=== PATIENT | female | born 1960 | race Caucasian/White ===

== ENCOUNTER 2018-02-09 07:48 | Day surgery (SDC) | payer OTHER ==
[2018-02-09] MEDS ORDERED: PROPOFOL 20 ML (09:27)
[2018-02-09] MEDS ORDERED: FENTAnyl 50 MCG/ML VIAL (09:27)
[2018-02-09] MEDS ORDERED: MIDAZOLAM 1 MG/ML 2 ML INJ (09:27)
[2018-02-09] MEDS ORDERED: LIDOCAINE 2% (SDV) 5 ML INJ (09:29)
== END 2018-02-09 15:01 | disposition home or self-care (01) ==
LOC: GIL 07:48
DX: K29.70 Gastritis, unspecified, without bleeding (principal); K64.8 Other hemorrhoids; K64.4 Residual hemorrhoidal skin tags; Q43.8 Other specified congenital malformations of intestine
CPT/HCPCS: 43239; 88305

== ENCOUNTER 2018-02-09 17:15 | Inpatient (IN) | payer OTHER ==
[2018-02-09] MEDS: ONDANSETRON 4 MG INJ IV (17:46)
[2018-02-09] MEDS: morphine 4 MG/ML VIAL IV (17:47)
[2018-02-09] MEDS: SOD CHLORIDE 0.9% 1,000 ML IV (17:48)
[2018-02-09 18:21] LABS: ADD MAN DIFF? NO
[2018-02-09 18:28] LABS: WHITE BLOOD COUNT 6.8 10^3/ul (4.8-10.8)
[2018-02-09 18:28] LABS: BASOPHILS % 0.1 % (0.0-2.0); EOSINOPHILS % 0.1 % (0.0-7.0); HEMATOCRIT 38.2 % (37.0-47.0); HEMOGLOBIN 13.1 g/dl (12.0-16.0); MEAN CORPUSCULAR HEMOGLOBIN 29.5 pg (29.0-33.0); MEAN CORPUSCULAR HGB CONC 34.3 g/dl (32.0-37.0); MEAN PLATELET VOLUME 11.5 fl (7.4-10.4); MONOCYTE # 0.6 10^3/ul (0.3-0.9); MONOCYTES % 9.4 % (0.0-11.0); NEUTROPHIL # 5.2 10^3/ul (1.6-7.5); NEUTROPHILS % 76.1 % (39.0-77.0); PLATELET COUNT 212 10^3/UL (140-415); RED BLOOD COUNT 4.44 10^6/ul (4.20-5.40); RED CELL DISTRIBUTION WIDTH 12.9 % (11.5-14.5)
[2018-02-09 18:30] LABS: ADD UMIC NO; UR ASCORBIC ACID NEGATIVE (NEGATIVE); UR BILIRUBIN (Dip) NEGATIVE (NEGATIVE); UR BLOOD (Dip) NEGATIVE (NEGATIVE); UR CLARITY CLEAR (CLEAR); UR COLOR STRAW (YELLOW); UR GLUCOSE (Dip) NEGATIVE (NEGATIVE); UR KETONES (Dip) NEGATIVE (NEGATIVE); UR LEUKOCYTE ESTERASE (Dip) NEGATIVE Leu/ul (NEGATIVE); UR NITRITE (Dip) NEGATIVE (NEGATIVE); UR SPECIFIC GRAVITY (Dip) 1.003 (1.003-1.030); UR TOTAL PROTEIN (Dip) NEGATIVE (NEGATIVE); UR UROBILINOGEN (Dip) NEGATIVE (NEGATIVE)
[2018-02-09 18:44] LABS: ALANINE AMINOTRANSFERASE 249 IU/L (13-69); ALBUMIN 4.3 g/dl (3.3-4.9); ALBUMIN/GLOBULIN RATIO 1.53; ALKALINE PHOSPHATASE 183 IU/L (42-121); ANION GAP 16 (8-16); ASPARTATE AMINO TRANSFERASE 355 IU/L (15-46); BILIRUBIN,INDIRECT 0.6 mg/dl (0-1.1); BILIRUBIN,TOTAL 0.6 mg/dl (0.2-1.3); BLOOD UREA NITROGEN 6 mg/dl (7-20); CALCIUM 9.9 mg/dl (8.4-10.2); CARBON DIOXIDE 25 mmol/L (21-31); CHLORIDE 108 mmol/L (97-110); CREATININE 0.82 mg/dl (0.44-1.00); GLUCOSE 98 mg/dl (70-220); LIPASE 42 U/L (23-300); POTASSIUM 3.8 mmol/L (3.5-5.1); SODIUM 145 mmol/L (135-144); TOTAL PROTEIN 7.1 g/dl (6.1-8.1)
[2018-02-09 18:46] LABS: AMYLASE 43 U/L (11-123)
[2018-02-09] MEDS ORDERED: ACETAMINOPHEN 325 MG TAB PO ×2 (19:30→23:00)
[2018-02-09 19:34] LABS: INR 0.92; PARTIAL THROMBOPLASTIN TIME 26.4 Sec (25.0-35.0); PROTIME 12.4 Sec (11.9-14.9)
[2018-02-09] MEDS: HYDROmorphONE 0.5 MG/0.5 ML SYG IV ×2 (20:03→23:10)
[2018-02-09] MEDS: HYDROmorphONE 1 MG/5 ML IV SYRINGE IV (20:07)
[2018-02-09] MEDS: NICOTINE (21 MG/24 HR) PATCH TRANSDERM (22:58)
[2018-02-10 00:05] LABS: HAAIG REFLEX REFLEX FILED
[2018-02-10] MEDS: QUETIAPINE 100 MG TAB PO ×2 (00:10→22:57)
[2018-02-10 00:57] LABS: HEPATITIS B SURFACE ANTIGEN NEGATIVE (NEGATIVE)
[2018-02-10 01:15] LABS: HEPATITIS B CORE ANTIBODY NEGATIVE (NEGATIVE); HEPATITIS C VIRAL ANTIBODY REACTIVE (NEGATIVE)
[2018-02-10 01:27] LABS: ALPHA FETOPROTEIN 1.83 IU/L (0.00-7.21)
[2018-02-10] MEDS ORDERED: VITAMIN A & D 5 GM OINT PACKET TOP (01:55)
[2018-02-10] MEDS: CYCLOBENZAPRINE 10 MG TAB PO ×3 (05:07→22:57)
[2018-02-10] MEDS: PANTOPRAZOLE (EC) 40 MG TAB PO (05:08)
[2018-02-10] MEDS: HYDROmorphONE 0.5 MG/0.5 ML SYG IV ×4 (05:36→20:26)
[2018-02-10 05:46] LABS: ADD MAN DIFF? NO
[2018-02-10 05:54] LABS: EOSINOPHILS % 0.3 % (0.0-7.0); HEMATOCRIT 31.8 % (37.0-47.0); HEMOGLOBIN 10.8 g/dl (12.0-16.0); LYMPHOCYTES % 24.3 % (15.0-51.0); MEAN CORPUSCULAR HEMOGLOBIN 29.8 pg (29.0-33.0); MEAN CORPUSCULAR VOLUME 87.6 fl (82.0-101.0); MEAN PLATELET VOLUME 11.2 fl (7.4-10.4); MONOCYTE # 0.4 10^3/ul (0.3-0.9); MONOCYTES % 10.3 % (0.0-11.0); NEUTROPHIL # 2.6 10^3/ul (1.6-7.5); NEUTROPHILS % 64.8 % (39.0-77.0); PLATELET COUNT 173 10^3/UL (140-415); RED BLOOD COUNT 3.63 10^6/ul (4.20-5.40); RED CELL DISTRIBUTION WIDTH 12.7 % (11.5-14.5)
[2018-02-10 06:00] LABS: ALANINE AMINOTRANSFERASE 256 IU/L (13-69); ALBUMIN 3.3 g/dl (3.3-4.9); ALBUMIN/GLOBULIN RATIO 1.37; ALKALINE PHOSPHATASE 190 IU/L (42-121); ANION GAP 10 (8-16); ASPARTATE AMINO TRANSFERASE 267 IU/L (15-46); BILIRUBIN,INDIRECT 0.7 mg/dl (0-1.1); BILIRUBIN,TOTAL 0.7 mg/dl (0.2-1.3); BLOOD UREA NITROGEN 8 mg/dl (7-20); CALCIUM 8.7 mg/dl (8.4-10.2); CARBON DIOXIDE 27 mmol/L (21-31); CHLORIDE 109 mmol/L (97-110); CREATININE 0.87 mg/dl (0.44-1.00); GLUCOSE 95 mg/dl (70-220); POTASSIUM 3.4 mmol/L (3.5-5.1); SODIUM 143 mmol/L (135-144); TOTAL PROTEIN 5.7 g/dl (6.1-8.1)
[2018-02-10] MEDS: DICYCLOMINE 10 MG CAP PO ×2 (09:16→20:26)
[2018-02-10] MEDS: NICOTINE (21 MG/24 HR) PATCH TRANSDERM (09:17)
[2018-02-10] MEDS: LORATADINE 10 MG TAB PO (09:17)
[2018-02-10] MEDS: PROPRANOLOL 20 MG TAB PO ×2 (09:17→20:27)
[2018-02-10] MEDS: ONDANSETRON 4 MG INJ IV (09:17)
[2018-02-10] MEDS: LURASIDONE IS XX ×2 (13:30→21:30)
[2018-02-10] MEDS: LORAZEPAM 1 MG TAB PO (13:45)
[2018-02-10 14:15] LABS: HEMATOCRIT 33.6 % (37.0-47.0)
[2018-02-10] MEDS: DEXTROSE 5%-0.45% NACL 1,000 ML IV (15:28)
[2018-02-10] MEDS: POTASSIUM CHLORIDE 100 ML IVPB (16:43)
[2018-02-10] MEDS: ATORVASTATIN 10 MG TAB PO (20:27)
[2018-02-11] MEDS: HYDROmorphONE 0.5 MG/0.5 ML SYG IV ×6 (00:01→21:23)
[2018-02-11 01:17] LABS: TROPONIN-I < 0.010 ng/ml (0.000-0.120)
[2018-02-11] MEDS: LURASIDONE IS XX ×3 (05:30→21:30)
[2018-02-11] MEDS: PANTOPRAZOLE (EC) 40 MG TAB PO (05:40)
[2018-02-11] MEDS: CYCLOBENZAPRINE 10 MG TAB PO ×3 (05:40→21:22)
[2018-02-11 06:05] LABS: ADD MAN DIFF? NO
[2018-02-11 06:06] LABS: WHITE BLOOD COUNT 4.6 10^3/ul (4.8-10.8)
[2018-02-11 06:06] LABS: BASOPHILS % 0.2 % (0.0-2.0); EOSINOPHILS % 0.2 % (0.0-7.0); HEMATOCRIT 32.8 % (37.0-47.0); HEMOGLOBIN 11.1 g/dl (12.0-16.0); LYMPHOCYTES # 1.3 10^3/ul (0.8-2.9); LYMPHOCYTES % 28.3 % (15.0-51.0); MEAN CORPUSCULAR HEMOGLOBIN 29.7 pg (29.0-33.0); MEAN CORPUSCULAR HGB CONC 33.8 g/dl (32.0-37.0); MEAN CORPUSCULAR VOLUME 87.7 fl (82.0-101.0); MEAN PLATELET VOLUME 11.1 fl (7.4-10.4); MONOCYTE # 0.5 10^3/ul (0.3-0.9); MONOCYTES % 10.7 % (0.0-11.0); NEUTROPHIL # 2.8 10^3/ul (1.6-7.5); NEUTROPHILS % 60.4 % (39.0-77.0); PLATELET COUNT 176 10^3/UL (140-415); RED BLOOD COUNT 3.74 10^6/ul (4.20-5.40)
[2018-02-11 06:23] LABS: HEMOGLOBIN A1C 5.8 % (0-5.9)
[2018-02-11 06:29] LABS: INR 0.94; PROTIME 12.7 Sec (11.9-14.9)
[2018-02-11 06:30] LABS: PARTIAL THROMBOPLASTIN TIME 27.9 Sec (25.0-35.0)
[2018-02-11 06:35] LABS: ANION GAP 12 (8-16); BLOOD UREA NITROGEN 11 mg/dl (7-20); CALCIUM 8.9 mg/dl (8.4-10.2); CARBON DIOXIDE 26 mmol/L (21-31); CHLORIDE 111 mmol/L (97-110); CREATININE 0.78 mg/dl (0.44-1.00); GLUCOSE 101 mg/dl (70-220); POTASSIUM 3.9 mmol/L (3.5-5.1); SODIUM 145 mmol/L (135-144)
[2018-02-11 06:53] LABS: TROPONIN-I < 0.010 ng/ml (0.000-0.120)
[2018-02-11 06:58] LABS: ALANINE AMINOTRANSFERASE 237 IU/L (13-69); ALBUMIN 3.5 g/dl (3.3-4.9); ALKALINE PHOSPHATASE 191 IU/L (42-121); ASPARTATE AMINO TRANSFERASE 158 IU/L (15-46); BILIRUBIN,INDIRECT 0.2 mg/dl (0-1.1); BILIRUBIN,TOTAL 0.2 mg/dl (0.2-1.3)
[2018-02-11] MEDS: DEXTROSE 5%-0.45% NACL 1,000 ML IV ×2 (07:40→11:07)
[2018-02-11] MEDS: PROPRANOLOL 20 MG TAB PO ×2 (09:00→21:00)
[2018-02-11] MEDS: DICYCLOMINE 10 MG CAP PO ×2 (10:21→21:17)
[2018-02-11] MEDS: LORATADINE 10 MG TAB PO (10:21)
[2018-02-11] MEDS: NICOTINE (21 MG/24 HR) PATCH TRANSDERM (10:23)
[2018-02-11] MEDS: LORAZEPAM 1 MG TAB PO ×2 (12:09→23:12)
[2018-02-11] MEDS ORDERED: CEPASTAT LOZENGE MT (16:30)
[2018-02-11] MEDS: QUETIAPINE 100 MG TAB PO ×2 (21:00→23:12)
[2018-02-11] MEDS: ATORVASTATIN 10 MG TAB PO (21:17)
[2018-02-11] MEDS: ONDANSETRON 4 MG INJ IV (21:22)
[2018-02-12] MEDS: DEXTROSE 5%-0.45% NACL 1,000 ML IV ×4 (00:20→22:30)
[2018-02-12] MEDS: HYDROmorphONE 0.5 MG/0.5 ML SYG IV ×5 (03:53→22:25)
[2018-02-12] MEDS: LURASIDONE IS XX ×3 (05:30→21:30)
[2018-02-12] MEDS: PANTOPRAZOLE (EC) 40 MG TAB PO (05:52)
[2018-02-12] MEDS: CYCLOBENZAPRINE 10 MG TAB PO ×3 (05:52→22:22)
[2018-02-12 07:15] LABS: ADD MAN DIFF? NO
[2018-02-12 07:17] LABS: BASOPHILS % 0.4 % (0.0-2.0); EOSINOPHILS % 0.4 % (0.0-7.0); HEMATOCRIT 31.5 % (37.0-47.0); HEMOGLOBIN 10.7 g/dl (12.0-16.0); LYMPHOCYTES % 19.9 % (15.0-51.0); MEAN CORPUSCULAR HEMOGLOBIN 29.6 pg (29.0-33.0); MEAN PLATELET VOLUME 11.2 fl (7.4-10.4); MONOCYTE # 0.5 10^3/ul (0.3-0.9); MONOCYTES % 9.4 % (0.0-11.0); NEUTROPHIL # 3.7 10^3/ul (1.6-7.5); NEUTROPHILS % 69.7 % (39.0-77.0); PLATELET COUNT 173 10^3/UL (140-415); RED BLOOD COUNT 3.62 10^6/ul (4.20-5.40); RED CELL DISTRIBUTION WIDTH 12.8 % (11.5-14.5)
[2018-02-12 07:17] LABS: WHITE BLOOD COUNT 5.2 10^3/ul (4.8-10.8)
[2018-02-12 07:52] LABS: ANION GAP 8 (8-16); BLOOD UREA NITROGEN 9 mg/dl (7-20); CARBON DIOXIDE 30 mmol/L (21-31); CHLORIDE 106 mmol/L (97-110); CREATININE 0.88 mg/dl (0.44-1.00); GLUCOSE 109 mg/dl (70-220); POTASSIUM 3.7 mmol/L (3.5-5.1); SODIUM 140 mmol/L (135-144)
[2018-02-12] MEDS: LORATADINE 10 MG TAB PO (08:32)
[2018-02-12] MEDS: NICOTINE (21 MG/24 HR) PATCH TRANSDERM (08:33)
[2018-02-12] MEDS: traMADol 50 MG TAB PO (08:33)
[2018-02-12] MEDS: PROPRANOLOL 20 MG TAB PO ×2 (08:34→22:23)
[2018-02-12] MEDS: DICYCLOMINE 10 MG CAP PO ×2 (08:37→22:22)
[2018-02-12] MEDS: HYDROCODONE/APAP (5/325) TAB PO (11:13)
[2018-02-12] MEDS: LORAZEPAM 1 MG TAB PO (14:42)
[2018-02-12] MEDS: QUETIAPINE 100 MG TAB PO (21:00)
[2018-02-12] MEDS: ATORVASTATIN 10 MG TAB PO (22:22)
[2018-02-13] MEDS: QUETIAPINE 100 MG TAB PO ×2 (00:19→21:43)
[2018-02-13] MEDS: LORAZEPAM 1 MG TAB PO ×3 (00:19→21:43)
[2018-02-13] MEDS: HYDROmorphONE 0.5 MG/0.5 ML SYG IV ×6 (03:09→23:27)
[2018-02-13] MEDS: CYCLOBENZAPRINE 10 MG TAB PO ×3 (05:20→22:59)
[2018-02-13] MEDS: PANTOPRAZOLE (EC) 40 MG TAB PO (05:20)
[2018-02-13] MEDS: LURASIDONE IS XX ×3 (05:30→21:30)
[2018-02-13 05:58] LABS: ADD MAN DIFF? NO
[2018-02-13 06:02] LABS: WHITE BLOOD COUNT 4.8 10^3/ul (4.8-10.8)
[2018-02-13 06:02] LABS: BASOPHILS % 0.2 % (0.0-2.0); EOSINOPHILS % 0.4 % (0.0-7.0); HEMATOCRIT 32.8 % (37.0-47.0); HEMOGLOBIN 11.1 g/dl (12.0-16.0); LYMPHOCYTES % 21.6 % (15.0-51.0); MEAN CORPUSCULAR HEMOGLOBIN 29.6 pg (29.0-33.0); MEAN CORPUSCULAR HGB CONC 33.8 g/dl (32.0-37.0); MEAN CORPUSCULAR VOLUME 87.5 fl (82.0-101.0); MEAN PLATELET VOLUME 10.9 fl (7.4-10.4); MONOCYTE # 0.5 10^3/ul (0.3-0.9); MONOCYTES % 10.3 % (0.0-11.0); NEUTROPHIL # 3.2 10^3/ul (1.6-7.5); NEUTROPHILS % 67.3 % (39.0-77.0); PLATELET COUNT 175 10^3/UL (140-415); RED BLOOD COUNT 3.75 10^6/ul (4.20-5.40); RED CELL DISTRIBUTION WIDTH 12.8 % (11.5-14.5)
[2018-02-13] MEDS: DEXTROSE 5%-0.45% NACL 1,000 ML IV ×2 (09:37→16:40)
[2018-02-13] MEDS: LORATADINE 10 MG TAB PO (09:38)
[2018-02-13] MEDS: NICOTINE (21 MG/24 HR) PATCH TRANSDERM (09:38)
[2018-02-13] MEDS: DICYCLOMINE 10 MG CAP PO ×2 (09:38→20:18)
[2018-02-13] MEDS: PROPRANOLOL 20 MG TAB PO ×2 (09:39→20:19)
[2018-02-13] MEDS ORDERED: IOHEXOL 14.3 MG(I)/ML (ADULT) BTL PO (12:00)
[2018-02-13] MEDS: SOD CHLORIDE 0.9% 100 ML (12:47)
[2018-02-13] MEDS: IOHEXOL 300MG/ML 150 ML BTL (12:47)
[2018-02-13] MEDS: ATORVASTATIN 10 MG TAB PO (20:19)
[2018-02-14] MEDS: HYDROmorphONE 0.5 MG/0.5 ML SYG IV ×4 (02:29→13:32)
[2018-02-14] MEDS: LURASIDONE IS XX (05:30)
[2018-02-14] MEDS: PANTOPRAZOLE (EC) 40 MG TAB PO (05:54)
[2018-02-14] MEDS: CYCLOBENZAPRINE 10 MG TAB PO ×4 (05:54→14:00)
[2018-02-14] MEDS: DEXTROSE 5%-0.45% NACL 1,000 ML IV (07:18)
[2018-02-14] MEDS: LORATADINE 10 MG TAB PO (09:24)
[2018-02-14] MEDS: NICOTINE (21 MG/24 HR) PATCH TRANSDERM (09:25)
[2018-02-14] MEDS: DICYCLOMINE 10 MG CAP PO (09:25)
[2018-02-14] MEDS: PROPRANOLOL 20 MG TAB PO (09:25)
[2018-02-14 10:55] LABS: ADD MAN DIFF? NO
[2018-02-14 10:57] LABS: BASOPHILS % 0.2 % (0.0-2.0); EOSINOPHILS % 0.2 % (0.0-7.0); HEMATOCRIT 35.4 % (37.0-47.0); HEMOGLOBIN 11.9 g/dl (12.0-16.0); LYMPHOCYTES % 21.3 % (15.0-51.0); MEAN CORPUSCULAR HEMOGLOBIN 29.5 pg (29.0-33.0); MEAN CORPUSCULAR HGB CONC 33.6 g/dl (32.0-37.0); MEAN CORPUSCULAR VOLUME 87.8 fl (82.0-101.0); MEAN PLATELET VOLUME 10.7 fl (7.4-10.4); MONOCYTE # 0.7 10^3/ul (0.3-0.9); MONOCYTES % 16.1 % (0.0-11.0); NEUTROPHIL # 2.9 10^3/ul (1.6-7.5); PLATELET COUNT 189 10^3/UL (140-415); RED BLOOD COUNT 4.03 10^6/ul (4.20-5.40); RED CELL DISTRIBUTION WIDTH 12.9 % (11.5-14.5)
[2018-02-14 10:57] LABS: WHITE BLOOD COUNT 4.6 10^3/ul (4.8-10.8)
[2018-02-14 11:15] LABS: ANION GAP 7 (8-16); BLOOD UREA NITROGEN 10 mg/dl (7-20); CALCIUM 9.4 mg/dl (8.4-10.2); CARBON DIOXIDE 32 mmol/L (21-31); CHLORIDE 104 mmol/L (97-110); CREATININE 0.76 mg/dl (0.44-1.00); GLUCOSE 109 mg/dl (70-220); POTASSIUM 3.9 mmol/L (3.5-5.1); SODIUM 139 mmol/L (135-144)
[2018-02-14] MEDS: LORAZEPAM 1 MG TAB PO (14:44)
== END 2018-02-14 18:25 | disposition home or self-care (01) | DRG 921 ==
LOC: E/R 17:15 → MS2 19:29
DX: D78.32 Postprocedural hematoma of the spleen following other procedure (principal); Z90.49 Acquired absence of other specified parts of digestive tract; F41.9 Anxiety disorder, unspecified; F17.210 Nicotine dependence, cigarettes, uncomplicated; K70.9 Alcoholic liver disease, unspecified; K80.50 Calculus of bile duct without cholangitis or cholecystitis without obstruction; Y83.8 Other surgical procedures as the cause of abnormal reaction of the patient, or of later complication, without mention of misadventure at the time of the procedure; I10 Essential (primary) hypertension; R07.81 Pleurodynia; M54.2 Cervicalgia; M25.512 Pain in left shoulder; F10.10 Alcohol abuse, uncomplicated
CPT/HCPCS: 36415; 70360; 71045; 73030; 74160; 74176; 74181; 80048; 80053; 80076; 81003; 82105; 82150; 83036; 83690; 84484; 85014; 85025; 85610; 85730; 86704; 86709; 86803; 86850; 86900; 86901; 87340; 93005; 96374; 96375; 99291-25

== ENCOUNTER 2018-04-15 18:53 | Emergency (ER) | payer OTHER ==
[2018-04-15] MEDS: CHLORDIAZEPOXIDE 25 MG CAP PO (19:37)
[2018-04-15] MEDS: ONDANSETRON (ODT) 4 MG TAB ODT (19:58)
== END 2018-04-15 20:55 | disposition home or self-care (01) ==
LOC: E/R 18:53
DX: F10.129 Alcohol abuse with intoxication, unspecified (principal); R40.2252 Coma scale, best verbal response, oriented, at arrival to emergency department; F17.210 Nicotine dependence, cigarettes, uncomplicated; I10 Essential (primary) hypertension; R40.2142 Coma scale, eyes open, spontaneous, at arrival to emergency department; R40.2362 Coma scale, best motor response, obeys commands, at arrival to emergency department
CPT/HCPCS: 99283; Z7502

== ENCOUNTER 2018-04-15 23:55 | Emergency (ER) | payer SELFPAY, OTHER | END 2018-04-16 01:56 | disposition left against medical advice (07) | LOC: E/R 23:55 | DX: Z53.21 Procedure and treatment not carried out due to patient leaving prior to being seen by health care provider (principal) ==

== ENCOUNTER 2018-04-17 05:09 | Emergency (ER) | payer SELFPAY | END 2018-04-17 07:58 | disposition left against medical advice (07) | LOC: E/R 05:09 | DX: Z53.21 Procedure and treatment not carried out due to patient leaving prior to being seen by health care provider (principal) ==